=== PATIENT | female | born 1990 | race African-American/Black ===

== ENCOUNTER 2017-05-09 23:23 | Emergency (ER) | payer OTHER ==
[~2017-05-09] VITALS: Ht 162.6 cm; Wt 75.7 kg
[2017-05-09] MEDS ORDERED: METO-295 PO (23:43)
[2017-05-09] MEDS ORDERED: ENOX40DI SQ (23:43)
[2017-05-09] MEDS ORDERED: PREN1TAB81 PO (23:43)
--- NOTE | 2017-05-09 23:45 | NUR ---
Pt ambulated to room with steady gait. Pt c/o R. sided sharp sudden cp, nonradiating. Unprovoked. Worse with deep breath. Lungs CTA. Pt sts she has a history of PE. Pt is also approx 4 mos preg. Pt placed on monitor NSR. EKG obtained and given to MD. Pt seen by IV established, labs drawn and sent. Resp even and unlabored. Pt resting in position of comfort for self.
[2017-05-10 00:17] LABS: BASOPHILS % (AUTO) 0.1 % (0.0-2.0); EOSINOPHILS # (AUTO) 0.2 K/uL (0.0-0.7); EOSINOPHILS % (AUTO) 1.4 % (0.0-7.0); HEMATOCRIT 35.8 % (37-47); HEMOGLOBIN 11.7 G/DL (12.0-16.0); LYMPHOCYTES # (AUTO) 2.4 K/UL (0.8-4.8); LYMPHOCYTES % (AUTO) 18.8 % (20.5-51.5); MEAN CORPUSCULAR HGB CONC 33 g/dL (32.0-37.0); MEAN CORPUSCULAR VOLUME 85.5 FL (81.0-99.0); MONOCYTES # (AUTO) 0.6 K/UL (0.1-1.30); MONOCYTES % (AUTO) 5.1 % (0.0-11.0); NEUTROPHILS # (AUTO) 9.3 K/UL (1.8-8.9); NEUTROPHILS % (AUTO) 74.6 % (38.5-71.5); PLATELET COUNT (AUTO) 187 K/UL (150-450); RED BLOOD CELL COUNT(AUTO) 4.19 MIL/UL (4.2-5.4); WHITE BLOOD COUNT (AUTO) 12.5 K/UL (4.0-11.2)
[2017-05-10 00:30] LABS: ALANINE AMINOTRANSFERASE 18 U/L (14-59); ALKALINE PHOSPHATASE 44 U/L (50-136); ASPARTATE AMINOTRANSFERASE 15 U/L (15-37); BILIRUBIN,DIRECT < 0.1 mg/dL (0.0-0.2); BILIRUBIN,TOTAL 0.2 mg/dL (0.2-1.0); CARBON DIOXIDE 27 mmol/L (21-32); CHLORIDE 103 mmol/L (98-107); CREATININE 0.7 mg/dL (0.6-1.3); GLUCOSE 88 mg/dL (74-106); POTASSIUM 3.3 mmol/L (3.5-5.1); TOTAL PROTEIN, SERUM 7.2 g/dL (6.4-8.2); UREA NITROGEN, BLOOD 10 mg/dL (7-18)
--- NOTE | 2017-05-10 00:49 | NUR ---
Pt ambulated in ER with steady gait, denies SOB, denies dizziness and no change to level of cp. Pt 99-100% on RA. Resp even and unlabored.
--- NOTE | 2017-05-10 01:31 | NUR ---
xrays obtained. Pt refusing VQ scan. into speak with pt. Pt signed out AMA. IV dc'd, catheter intact, drsg applied. No problems noted to site. Pt ambulated out of er with steady gait, no shortness of breath noted, resp even and unlabored. No obvious signs of distress.
[2017-05-10 01:35] VITALS: BP 115/70
== END 2017-05-10 01:37 | disposition left against medical advice (07) ==
LOC: ER 23:24
DX: O26.892 Other specified pregnancy related conditions, second trimester (principal); Z3A.16 16 weeks gestation of pregnancy; R07.89 Other chest pain; R06.00 Dyspnea, unspecified; Z86.711 Personal history of pulmonary embolism
CPT/HCPCS: 36415; 70030-TC; 71010; 85025; 85730; 93005; A4663